=== PATIENT | female | born 1995 | race African-American/Black ===

== ENCOUNTER 2017-01-10 16:42 | Emergency (ER) | payer OTHER, MEDICAID ==
[~2017-01-10] VITALS: Ht 165.1 cm; Wt 83.0 kg
[~2017-01-10 16:42] MED LIST: ACET325 PO; CLIN1CAP5 PO; MMW SWISH-SWAL; ZOFR4TAB3 PO
[2017-01-10 17:02] VITALS: BP 126/65; PULSE 83; RESP 16; TEMP 98.1; O2SAT 100
[2017-01-10 17:14] VITALS: BP 133/69; PULSE 93; RESP 19; TEMP 98.6; O2SAT 96
[2017-01-10] MEDS ORDERED: SODIUM CHLOR 0.9% 1000 ML INJ 1,000 ML IV SCH (17:22)
[2017-01-10] MEDS ORDERED: ONDANSETRON HCL 4 MG/2 ML VIAL IVP ONE (17:30)
[2017-01-10] MEDS ORDERED: KETOROLAC TROMETHAMINE 30 MG/ML (IVP) VIAL IVP ONE (17:30)
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
[2017-01-10 18:31] LABS: AUTOMATED NEUTROPHIL # 7.2 TH/MM3 (1.8-7.7); BASOPHIL % 0.2 % (0.0-2.0); HEMATOCRIT 42.2 % (35.0-46.0); HEMO FLAGS DIFF FINAL; LYMPHOCYTE # 1.7 TH/MM3 (1.0-4.8); MEAN CELL VOLUME 79.7 FL (80.0-100.0); MEAN CORPUSCULAR HGB CONC 31.4 % (32.0-36.0); MONO % 7.2 % (0.0-8.0); NEUT % 74.6 % (16.0-70.0); PLATELET COUNT 291 TH/MM3 (150-450); RED BLOOD COUNT 5.29 MIL/MM3 (4.00-5.30); RED CELL DISTRIBUTION WIDTH 13.9 % (11.6-17.2); WHITE BLOOD COUNT 9.7 TH/MM3 (4.0-11.0)
[2017-01-10 18:53] LABS: ANION GAP 6 MEQ/L (5-15); BICARBONATE 26.3 MEQ/L (21.0-32.0); BLOOD UREA NITROGEN 10 MG/DL (7-18); CHLORIDE 106 MEQ/L (98-107); GLOMERULAR FILTRATION RATE 117 ML/MIN (>89); POTASSIUM 3.6 MEQ/L (3.5-5.1); SODIUM (NA) 138 MEQ/L (136-145)
[2017-01-10 18:57] LABS: BETA HCG QUANT LESS THAN 1 MIU/ML (0-5)
[2017-01-10 19:20] VITALS: BP 100/63; PULSE 81; RESP 18; O2SAT 100
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
[2017-01-10] MEDS ORDERED: CYCL1TAB29 PO (20:00)
== END 2017-01-10 20:41 | disposition home or self-care (01) ==
LOC: NEPD 16:42
DX: S29.012A Strain of muscle and tendon of back wall of thorax, initial encounter (principal); M54.2 Cervicalgia; V49.40XA Driver injured in collision with unspecified motor vehicles in traffic accident, initial encounter
CPT/HCPCS: 70450; 71010; 72125; 72170; 80048; 84702; 85025; 96361; 96374; 96375; 99285; J1885; J2405; J7030

== ENCOUNTER 2017-08-03 13:05 | Emergency (ER) | payer OTHER ==
[~2017-08-03] VITALS: Ht 167.6 cm; Wt 75.0 kg
[~2017-08-03 13:05] MED LIST changes: -ACET325 PO; -CLIN1CAP5 PO; +CYCL10TA PO; -MMW SWISH-SWAL; -ZOFR4TAB3 PO
[2017-08-03 13:15] VITALS: BP 112/56; PULSE 77; RESP 16; TEMP 97.6; O2SAT 100
[2017-08-03] MEDS ORDERED: CYCL10TA PO (13:56)
[2017-08-03] MEDS ORDERED: IBUP-232 PO (13:56)
[2017-08-03] MEDS ORDERED: MAGICADU2 SWISH-SWAL (13:58)
[2017-08-03] MEDS ORDERED: ONDANSETRON ODT 4 MG TAB PO ONE (14:00)
[2017-08-03] MEDS ORDERED: IBUPROFEN 600 MG TAB PO ONE (14:00)
[2017-08-03] MEDS ORDERED: CYCLOBENZAPRINE HCL 10 MG TAB PO ONE (14:00)
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
== END 2017-08-03 14:11 | disposition home or self-care (01) ==
LOC: NEPK 13:05
DX: S16.1XXA Strain of muscle, fascia and tendon at neck level, initial encounter (principal); S01.512A Laceration without foreign body of oral cavity, initial encounter; V89.2XXA Person injured in unspecified motor-vehicle accident, traffic, initial encounter
CPT/HCPCS: 99283

== ENCOUNTER 2017-09-07 22:44 | Emergency (ER) | payer MEDICAID ==
[~2017-09-07] VITALS: Ht 167.6 cm; Wt 75.0 kg
[~2017-09-07 22:44] MED LIST changes: +IBUP-232 PO; +MAGICADU2 SWISH-SWAL
[2017-09-07 23:07] VITALS: BP 100/54; PULSE 84; RESP 14; TEMP 98.3; O2SAT 99
--- NOTE | 2017-09-07 23:20 | PD ---
HPI Chief Complaint: Cold / Flu Symptoms Time Seen by Provider: 23:13 Travel History International Travel<30 days: No Contact w/Intl Traveler<30days: No Traveled to known affect area: No History of Present Illness HPI Patient is a 22-year-old female presents emergency department for evaluation of nausea without vomiting and decreased stooling over the past 4 days. Patient denies any abdominal pain. Denies any dysuria vaginal bleeding vaginal discharge. No other close sick contacts. No surgeries in the past no previous similar symptoms in the past. Has not tried any interventions prior to arrival. Symptoms mild, duration as above, associated signs symptoms as above, constant PFSH Past Medical History ADD: Yes Diminished Hearing: No Immunizations Current: Yes ?: Not LMP: 09/07/17 Past Surgical History Surgical History: No Previous Surgery Social History Alcohol Use: No Tobacco Use: No Substance Use: No Allergies-Medications (Allergen,Severity, Reaction): Coded Allergies: No Known Allergies (Verified , 01/10/17) Reported Meds & Prescriptions Reported Meds & Active Scripts Active Miralax Powder (Polyethylene Glycol 3350 Powder) 17 Gm Powd 17 Gm PO DAILY 7 Days Mix and dissolve one measuring cap-ful (17 grams) in water or juice. Zofran (Ondansetron HCl) 4 Mg Tab 4 Mg PO Q6HR PRN Review of Systems Except as stated in HPI: all other systems reviewed are Neg Physical Exam Narrative GENERAL: Well-nourished, well-developed patient. SKIN: Focused skin assessment warm/dry. HEAD: Normocephalic. EYES: No scleral icterus. No injection or drainage. NECK: Supple, trachea midline. No JVD or lymphadenopathy. CARDIOVASCULAR: Regular rate and rhythm without murmurs, gallops, or rubs. RESPIRATORY: Breath sounds equal bilaterally. No accessory muscle use. GASTROINTESTINAL: Abdomen soft, non-tender, nondistended. No rebound no percussive tenderness. Normoactive bowel sounds. abdomen is completely benign. MUSCULOSKELETAL: No cyanosis, or edema. BACK: Nontender without obvious deformity. No CVA tenderness. Data Data Last Documented VS Vital Signs Date Time Temp Pulse Resp B/P (MAP) Pulse Ox O2 Delivery O2 Flow Rate FiO2 09/07/17 23:07 98.3 84 14 100/54 (69) 99 Orders Orders Urinalysis - C+S If Indicated (09/07/17 23:19) Ed Urine Pregnancytest Poc (09/07/17 23:19) Ondansetron Odt (Zofran Odt) (09/07/17 23:30) Ed Discharge Order (09/08/17 00:19) Labs Laboratory Tests Test 09/07/17 23:30 Urine Color LIGHT-YELLOW Urine Turbidity HAZY Urine pH 6.5 Urine Specific [place] 1.028 Urine Protein TRACE mg/dL Urine Glucose (UA) NEG mg/dL Urine Ketones NEG mg/dL Urine Occult Blood TRACE Urine Nitrite NEG Urine Bilirubin NEG Urine Urobilinogen 4.0 MG/DL Urine Leukocyte Esterase TRACE Urine RBC 1 /hpf Urine WBC 1 /hpf Urine Squamous Epithelial Cells 2 /hpf Urine Amorphous Sediment RARE Urine Mucus MANY /lpf Microscopic Urinalysis Comment CULT NOT INDICATED MDM Medical Decision Making Medical Screen Exam Complete: Yes Emergency Medical Condition: Yes Differential Diagnosis Gastritis, gastroneuritis, constipation, acute abdomen highly unlikely, cholecystitis, pancreatitis Narrative Course Patient room to the emergency department, has a completely benign abdomen here in the emergency department. She was given Zofran, UA negative, UPT negative. She has not had any complaints of abdominal pain. She is able to tolerate Gatorade and is feeling much better after Zofran, discussed symptomatic management and return to ED criteria. No definitive cause of her nausea and constipation is been identified but will manage symptomatically for now and follow-up with a primary care physician Diagnosis Primary Impression: Nausea Additional Impression: Constipation Med/Other Pt SpecificInfo: Prescription(s) given Scripts Polyethylene Glycol 3350 Powder (Miralax Powder) 17 Gm Powd 17 GM PO DAILY for Constipation for 7 Days, #1 CAN 0 Refills Mix and dissolve one measuring cap-ful (17 grams) in water or juice. Prov: Vladislav Lloyd MD 09/07/17 Ondansetron (Zofran) 4 Mg Tab 4 MG PO Q6HR Y for NAUSEA OR VOMITING, #20 TAB 0 Refills Prov: Vladislav Lloyd MD 09/07/17 Disposition: 01 DISCHARGE HOME Condition: Stable Vladislav Lloyd MD Sep 07, 2017 23:20
[2017-09-07] MEDS ORDERED: ONDANSETRON ODT 4 MG TAB PO ONE (23:30)
[2017-09-07] MEDS ORDERED: ZOFR4TAB PO (23:43)
[2017-09-07] MEDS ORDERED: MIRA3350 PO (23:43)
[2017-09-07 23:55] LABS: AMORPHOUS SEDIMENT, URINE RARE; BILIRUBIN, URINE NEG (NEG); BLOOD, URINE TRACE (NEG); GLUCOSE,URINE NEG (NEG); KETONE, URINE NEG (NEG); MUCUS URINE MANY /lpf (OCC); NITRITE,URINE NEG (NEG); PH, URINE 6.5 (5.0-8.5); SQUAMOUS EPITHELIAL CELL URINE 2 /hpf (0-5); URINE COLOR LIGHT-YELLOW (YELLW/STRAW); URINE LEUKOCYTE ESTERASE TRACE (NEG)
== END 2017-09-08 00:21 | disposition home or self-care (01) ==
LOC: NEPC 22:44
DX: R11.0 Nausea (principal); K59.00 Constipation, unspecified
CPT/HCPCS: 81001; 84703; 99283